=== PATIENT | female | born 1930 | race Caucasian/White ===

== ENCOUNTER 2019-08-04 15:46 | Inpatient (IN) ==
[2019-08-04] MEDS ORDERED: SALINE LOCK IV FLUID XX ONE (18:18)
[2019-08-04] MEDS ORDERED: VANCOMYCIN IV PER PHARMACY MISC SCH (18:30)
[2019-08-04 19:25] LABS: BASO# 0.05 X1000 (0.0-0.2); BASO% 0.6 % (0.0-0.8); EOS# 0.24 X1000 (0.0-0.7); EOS% 2.9 % (0.0-10.0); HEMATOCRIT 32.8 % (37.0-47.0); HEMOGLOBIN 10.5 g/dL (12.0-16.0); IMM GRAN# 0.02 X1000 (0.0-0.04); IMM GRAN% 0.2 % (0.0-0.5); LYMPH# 1.65 X1000 (1.2-3.4); MCH 29.4 PG (27-31); MCV 91.9 FL (81-99); MONO# 0.73 X1000 (0.11-0.59); MONO% 8.9 % (1.7-9.3); MPV 10.5 FL (7.4-10.4); NEUT# 5.54 X1000 (1.4-6.5); NEUT% 67.4 % (42.2-75.2); PLT 207 X1000 (130-400); RBC 3.57 XMIL (4.2-5.4); RDW 13.3 % (11.5-14.5); WBC 8.23 X1000 (4.8-10.8)
[2019-08-04 19:50] LABS: ALB/GLOB RATIO 1.4; ALBUMIN 4.4 g/dL (3.5-5.0); CALCIUM 10.2 mg/dL (8.8-10.2); CREATININE 1.8 mg/dL (0.5-0.9); POTASSIUM 5.3 mmol/L (3.5-5.1); TOTAL BILIRUBIN 0.29 mg/dL (0.20-1.00); TOTAL PROTEIN 7.6 g/dL (6.3-8.3)
[2019-08-04] MEDS: XALATAN 0.005% OPH SOLN BOTH EYES SCH (22:35)
[2019-08-04] MEDS: LOVENOX SUBQ SCH (22:36)
[2019-08-04] MEDS ORDERED: VANCOMYCIN 1,750 MG in NS 250 ML IV ONE (23:00)
[2019-08-05 02:10] LABS: URINE SOURCE CLEAN CATCH
[2019-08-05] MEDS ORDERED: TYLENOL PO PRN (02:12)
[2019-08-05] MEDS ORDERED: NORCO-7.5 PO PRN (02:13)
[2019-08-05 02:22] LABS: BILIRUBIN URINE NEGATIVE (NEGATIVE); BLOOD URINE NEGATIVE (NEGATIVE); COLOR YELLOW; GLUCOSE URINE NEGATIVE (NEGATIVE); KETONE URINE NEGATIVE (NEGATIVE); LEUKOCYTES URINE MODERATE (NEGATIVE); NITRITE URINE NEGATIVE (NEGATIVE); PH URINE 6.5; PROTEIN URINE NEGATIVE (NEGATIVE); TURBIDITY URINE CLEAR (CLEAR); UROBILINOGEN URINE NORMAL (NORMAL)
[2019-08-05 02:23] LABS: UR EPITHELIAL CELLS <10 /HPF (<10); URINE BACTERIA NEGATIVE /HPF; URINE RBC <10 /HPF (<10); URINE WBC 20-40 /HPF (<10)
[2019-08-05] MEDS: NORCO-7.5 PO PRN ×3 (02:41→20:54)
[2019-08-05] MEDS: PROTONIX PO SCH (06:06)
--- NOTE | 2019-08-05 06:30 | HISTORY AND PHYSICAL ---
CHIEF COMPLAINT: Right leg redness and swelling, stasis ulcers, and not healing for the last one year under the care of Dr. Wilson. HISTORY OF PRESENT ILLNESS: He is an 88-year-old white female who came in my office along with son where the right lower leg is red and swollen, exited drainage on the stasis ulcers bilaterally. I have seen her in April. At that time, the wound is completely healed. Apparently, started back again of pain, and not able to walk. The patient has been admitted to the hospital with wound culture, wound consult, and IV antibiotics. Family agreed upon since he has failed with outpatient treatment. 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 PAST SURGICAL HISTORY: Appendectomy, cholecystectomy, cystocele repair, hysterectomy, bilateral knee arthroplasty, right shoulder replacement, and deviated septum corrected by Dr. Huffman. MEDICATIONS: 1. Cozaar 50 mg daily. 2. Latanoprost 1 drop b.i.d. 3. Protonix 40 daily. 4. Toprol 25 daily. 5. Aldactone 25 daily. 6. Lasix as needed. ALLERGIES: Sulfa. SOCIAL HISTORY: . Living with son, living in [place]. No smoking. No alcohol. FAMILY HISTORY: Father of old age at 72. Mom of stroke at 52. Health maintenance flu vaccine August of 2018. Pneumococcal in August of 2017. Tetanus in 2007. Mammography March of 2015. Last colonoscopy April of [address] Abbott. The last eye exam April of [address] Lyles. REVIEW OF SYSTEMS: HEENT: No headache. He had vision problems with Dr. Lyles. No earache. No sore throat. Neck: No goiter. No lymphadenopathy. No bruit. Cardiopulmonary: No chest pain, shortness of breath, PND, or orthopnea. GI: No nausea, vomiting, or abdominal pain. No bleeding per rectum. : No history of hesitancy, frequency, dysuria. Right leg swelling, drainage, pain, not able to walk. Neurologic: No focal symptoms or weakness. PHYSICAL EXAMINATION: VITAL SIGNS: She is afebrile, 5 feet 4, and 226 pounds. HEENT: Atraumatic, normocephalic. Pupils equal and reactive to light. TMs are normal. Nose and throat within normal limits. NECK: Supple. No lymphadenopathy. No goiter. CHEST: Bilateral air entry. HEART: Sounds are regular very distant. Belly is soft, obese, and nontender. Good bowel sounds. EXTREMITIES: Right leg has diffuse redness with signs of inflammation. Yellow exudate is emanating on the lateral part of the leg. No signs of gangrene. No obvious deficits. INVESTIGATIONS: White cell count 8.2, hematocrit 32, and platelet 207,000. Sedimentation rate was 56. Sodium 137, potassium 5.3, BUN 40, creatinine 1.8. LFTs were normal. Wound cultures are pending. ASSESSMENT AND PLAN: 1. An 88-year-old white female admitted to the hospital with right leg cellulitis with chronic venous stasis ulcers not improving. Follow up on wound culture. Plan is IV vancomycin. Wound consult. 2. History of diastolic heart failure, PAF, on fluid restrictions and daily weights. 3. Cardiac healthy diet. 4. Reconcile home medications. 5. PAF. The patient was not a candidate for anticoagulation due to GI bleeding in the past. 6. History of glaucoma on eye drops. 7. DVT and GI prophylaxis with PPI and Lovenox. 8. We will follow up. cc: Jose Antonio Layne MD
[2019-08-05] MEDS: CULTURELLE PO SCH (08:31)
[2019-08-05] MEDS: COZAAR PO SCH (08:31)
[2019-08-05] MEDS: VICON-C PO SCH (08:31)
[2019-08-05] MEDS: LASIX PO SCH (08:32)
[2019-08-05] MEDS: TOPROL XL PO SCH (08:32)
[2019-08-05] MEDS: ASPIRIN PO SCH (08:32)
[2019-08-05] MEDS: PATIENT'S OWN MED PO SCH ×2 (10:56)
[2019-08-05] MEDS: XALATAN 0.005% OPH SOLN BOTH EYES SCH (20:13)
[2019-08-05] MEDS: LOVENOX SUBQ SCH (20:13)
[2019-08-06] MEDS: PROTONIX PO SCH (06:21)
--- NOTE | 2019-08-06 07:13 | PROGRESS NOTE ---
DATE: 08/05/2019 SUBJECTIVE: The patient is doing a little better. Son is at bedside. REVIEW OF SYSTEMS: None reported. PHYSICAL EXAMINATION: Vital Signs: Temperature is 97 degrees, pulse 84, vitals are stable. HEENT: Within normal limits. Chest: Clear. Heart: Heart sounds are regular. Abdomen: Belly is soft, nontender. Extremities: Right leg is diffusely red. Exudate is decreasing. LABORATORY DATA: Wound culture is showing gram-negative rods. ASSESSMENT AND PLAN: 1. Right leg cellulitis. Intravenous antibiotics with vancomycin. Based on the cultures, further recommendations will be followed. Waiting for Wound Care consult. Follow up on wound culture report. Continue present antibiotics. 2. Chronic kidney disease, stable. 3. Diastolic heart failure, stable. 4. Deep venous thrombosis prophylaxis with Lovenox. Will follow up and will check the BMP in the morning. LEVEL OF DOCUMENTATION: 25 minutes. cc: Jose Antonio Layne MD
[2019-08-06 08:52] LABS: CALCIUM 9.2 mg/dL (8.8-10.2); CREATININE 1.8 mg/dL (0.5-0.9); POTASSIUM 4.3 mmol/L (3.5-5.1)
[2019-08-06] MEDS: PATIENT'S OWN MED PO SCH ×2 (09:53→09:54)
[2019-08-06] MEDS: VICON-C PO SCH (09:54)
[2019-08-06] MEDS: TOPROL XL PO SCH (09:54)
[2019-08-06] MEDS: LASIX PO SCH (09:54)
[2019-08-06] MEDS: ASPIRIN PO SCH (09:54)
[2019-08-06] MEDS: COZAAR PO SCH (09:54)
[2019-08-06] MEDS: CULTURELLE PO SCH (09:54)
[2019-08-06] MEDS ORDERED: LEVAQUIN 500 MG/D5W 500 MG/100 ML IVPB IV SCH (14:45)
[2019-08-06] MEDS: XALATAN 0.005% OPH SOLN BOTH EYES SCH (20:07)
[2019-08-06] MEDS ORDERED: LOVENOX SUBQ SCH (21:00)
[2019-08-06] MEDS ORDERED: VANCOMYCIN 1,450 MG in NS 250 ML IV SCH (23:00)
[2019-08-06] MEDS: NORCO-7.5 PO PRN (23:25)
--- NOTE | 2019-08-07 05:51 | PROGRESS NOTE ---
DATE: 08/06/2019 SUBJECTIVE: The patient is doing very well. REVIEW OF SYSTEMS: None reported. OBJECTIVE: Temperature is 98 degrees and pulse 79. Vitals are stable.HEENT: Within normal limits. Chest: Clear. Heart: Sounds are regular. Abdomen: Belly is soft and nontender. Extremities: Right leg was wrapped up. Wound cultures grew gram-negative rods with Serratia marcescens sensitive to Levaquin. ASSESSMENT AND PLAN: 1. Right leg cellulitis with Serratia, changing IV vancomycin to Levaquin 250 IV once a day. Adjust the dose based on the creatinine clearance. 2. Deep venous thrombosis prophylaxis. Decrease Lovenox to 30 mg subcutaneously daily. Continue present treatment. Appreciated wound consult. We will continue the antibiotics. We will follow up. LEVEL OF DOCUMENTATION: 35 minutes. cc: Jose Antonio Layne MD
[2019-08-07] MEDS: PROTONIX PO SCH (06:00)
[2019-08-07] MEDS: CULTURELLE PO SCH (08:37)
[2019-08-07] MEDS: ASPIRIN PO SCH (08:37)
[2019-08-07] MEDS: TOPROL XL PO SCH (08:37)
[2019-08-07] MEDS: VICON-C PO SCH (08:37)
[2019-08-07] MEDS: LASIX PO SCH (08:37)
[2019-08-07] MEDS: COZAAR PO SCH (08:38)
[2019-08-07] MEDS: PATIENT'S OWN MED PO SCH ×2 (08:39)
[2019-08-07] MEDS: LOVENOX SUBQ SCH (13:27)
[2019-08-07] MEDS: LEVAQUIN 250 MG/D5W 250 MG/50 ML IVPB IV SCH (18:26)
[2019-08-07] MEDS: XALATAN 0.005% OPH SOLN BOTH EYES SCH (22:19)
[2019-08-07] MEDS: NORCO-7.5 PO PRN (23:27)
[2019-08-08] MEDS: PROTONIX PO SCH ×2 (05:41→06:17)
--- NOTE | 2019-08-08 06:38 | PROGRESS NOTE ---
DATE: 08/07/2019 SUBJECTIVE: The son is at bedside. Patient is doing well obviously. Wound cultures grew Serratia. REVIEW OF SYSTEMS: None reported. EXAM: Temp is 97 degrees, vitals are stable.HEENT: Within normal limits. Neck: Supple. Chest: Clear. Heart: Sounds are regular. Abdomen: Belly is soft, nontender. Neurologic: No obvious deficits. INVESTIGATION: Creatinine 1.8. ASSESSMENT AND PLAN: Right leg cellulitis with Serratia. Change to Levaquin 250 IV once a day. Changing the DVT prophylaxis with Lovenox 30 subcu q.24 hours. Continue present treatment. I appreciated wound consult. Out of the bed with physical therapy. LEVEL OF DOCUMENTATION: 25 minutes. cc: Jose Antonio Layne MD
[2019-08-08] MEDS: TOPROL XL PO SCH (11:17)
[2019-08-08] MEDS: CULTURELLE PO SCH (11:17)
[2019-08-08] MEDS: LASIX PO SCH (11:17)
[2019-08-08] MEDS: COZAAR PO SCH (11:18)
[2019-08-08] MEDS: VICON-C PO SCH (11:18)
[2019-08-08] MEDS: PATIENT'S OWN MED PO SCH ×3 (11:18→20:14)
[2019-08-08] MEDS: ASPIRIN PO SCH (11:18)
[2019-08-08] MEDS: LOVENOX SUBQ SCH (11:19)
[2019-08-08] MEDS ORDERED: TUMS EXTRA STRENGTH PO PRN (14:50)
[2019-08-08] MEDS ORDERED: PATIENT'S OWN MED PO SCH (15:00)
[2019-08-08] MEDS: LEVAQUIN 250 MG/D5W 250 MG/50 ML IVPB IV SCH (17:57)
[2019-08-08] MEDS: ALPHAGAN 0.2% OPHTH SOLN LEFT EYE SCH ×2 (18:01→20:07)
--- NOTE | 2019-08-08 22:22 | PROGRESS NOTE ---
DATE: 08/08/2019 SUBJECTIVE: The patient is doing better. Intravenous access is out and trying to get an IV. Patient wants to restart her home medicines, mostly for eye drops. REVIEW OF SYSTEMS: None reported. OBJECTIVE: Temperature is 97 degrees. Vitals are stable.HEENT: Within normal limits. Chest: Clear. Heart sounds are regular. Belly is soft, nontender. No obvious deficits. INVESTIGATIONS: Wound cultures are Serratia. Urine cultures are Proteus mirabilis. ASSESSMENT AND PLAN: 1. Right leg cellulitis with stasis ulcers not healing for two years. Continue on IV Levaquin. 2. Deep venous thrombosis prophylaxis with Lovenox. Restart her home medicines. 3. Dietary consult for weight loss. 4. Follow up on Proteus infection about C S. 5. Poor intravenous access, will get an IV and will follow up. LEVEL OF DOCUMENTATION: 25 minutes. cc: Jose Antonio Layne MD
[2019-08-08] MEDS: NORCO-7.5 PO PRN (23:16)
[2019-08-08] MEDS: XALATAN 0.005% OPH SOLN BOTH EYES SCH (23:17)
[2019-08-09] MEDS: PROTONIX PO SCH (06:30)
[2019-08-09] MEDS: PATIENT'S OWN MED PO SCH ×4 (09:00→09:35)
[2019-08-09] MEDS: TOPROL XL PO SCH (09:04)
[2019-08-09] MEDS: ASPIRIN PO SCH (09:04)
[2019-08-09] MEDS: VICON-C PO SCH (09:04)
[2019-08-09] MEDS: LASIX PO SCH (09:04)
[2019-08-09] MEDS: CULTURELLE PO SCH (09:04)
[2019-08-09] MEDS: COZAAR PO SCH (09:04)
[2019-08-09] MEDS: ALPHAGAN 0.2% OPHTH SOLN LEFT EYE SCH ×2 (09:12→22:00)
[2019-08-09] MEDS: LOVENOX SUBQ SCH (10:55)
--- NOTE | 2019-08-09 12:17 | PROGRESS NOTE ---
DATE: 08/09/2019 SUBJECTIVE: The patient is doing very well and tomorrow, the staff is going to unwrap the right leg. OBJECTIVE: Temperature is 97, pulse 74, blood pressure 131/50, weight is 215 pounds. Physical exam with no change. DIAGNOSTIC DATA: No labs. ASSESSMENT AND PLAN: 1. Right leg cellulitis due to serratia. Continue on Levaquin. 2. Poor IV access, multiple attempts. 3. Proteus mirabilis infection resistant to everything except imipenem. I will discuss with caregiver. Currently asymptomatic. 4. DVT prophylaxis with Lovenox. 5. Restart home medicines for glaucoma. 6. Out of the bed with physical therapy. Level of documentation is 25 minutes. cc: Jose Antonio Layne MD
[2019-08-09] MEDS ORDERED: LEVAQUIN PO SCH (18:00)
[2019-08-09] MEDS: XALATAN 0.005% OPH SOLN BOTH EYES SCH (22:00)
[2019-08-09] MEDS: NORCO-7.5 PO PRN (22:04)
[2019-08-10] MEDS: PATIENT'S OWN MED PO SCH ×5 (01:20→15:21)
[2019-08-10] MEDS: PROTONIX PO SCH (06:58)
[2019-08-10] MEDS: CULTURELLE PO SCH (09:11)
[2019-08-10] MEDS: VICON-C PO SCH (09:11)
[2019-08-10] MEDS: LASIX PO SCH (09:11)
[2019-08-10] MEDS: TOPROL XL PO SCH (09:11)
[2019-08-10] MEDS: COZAAR PO SCH (09:11)
[2019-08-10] MEDS: ASPIRIN PO SCH (09:11)
[2019-08-10] MEDS: ALPHAGAN 0.2% OPHTH SOLN LEFT EYE SCH ×2 (09:12→20:28)
[2019-08-10 09:35] LABS: INR 1.1; PROTIME 14.4 Seconds (11.0-16.0)
[2019-08-10] MEDS ORDERED: SANTYL OINT TOP SCH (11:15)
[2019-08-10] MEDS: LOVENOX SUBQ SCH (12:31)
[2019-08-10] MEDS ORDERED: NS 250 ML ONE (14:48)
--- NOTE | 2019-08-10 16:15 | Diag Imaging Result Doc PS360 ---
CHEST-1 VIEW - 08/10/2019 INDICATION: picc line placement COMPARISON: 08/13/2017 FINDINGS: There is a right PICC line in good position with the tip at the upper SVC. Stable sternotomy wires. Stable dual chamber left pacemaker. Heart size is top normal. Pulmonary vascularity is normal. No infiltrates or definite edema. IMPRESSION: Good right PICC line placement. Electronically signed by Ray Alvarado 08/10/2019 4:13 PM
[2019-08-10] MEDS: LEVAQUIN 250 MG/D5W 250 MG/50 ML IVPB IV SCH (18:12)
[2019-08-10] MEDS ORDERED: NS 500 ML ONE (18:25)
[2019-08-10] MEDS: XALATAN 0.005% OPH SOLN BOTH EYES SCH (20:28)
--- NOTE | 2019-08-10 21:40 | PROGRESS NOTE ---
DATE: 08/10/2019 SUBJECTIVE: IV access is problematic. She is not getting IV antibiotics for the last 2 days. Right leg is still bandaged. Wound cultures grew Serratia, also UTI with Proteus. OBJECTIVE: Vital signs: Temperature is 97 degrees. Vitals are stable. Physical exam: No change. ASSESSMENT AND PLAN: 1. Chronic right leg stasis ulcers with cellulitis with Serratia. 2. Urinary tract infection, 50,000 colonies. 3. Poor IV access. I discussed with the patient's son. Needs IV antibiotics. We will get a PICC line, aggressive treatment. We will arrange home IV antibiotics for at least 2 weeks and agreeable and also he wants a second opinion with Dr. Wilson. LEVEL OF DOCUMENTATION: 25 minutes. cc: Jose Antonio Layne MD
[2019-08-10] MEDS: NORCO-7.5 PO PRN (23:53)
[2019-08-11] MEDS: PROTONIX PO SCH (06:06)
[2019-08-11 07:09] LABS: BASO# 0.05 X1000 (0.0-0.2); BASO% 0.8 % (0.0-0.8); EOS# 0.32 X1000 (0.0-0.7); EOS% 5.1 % (0.0-10.0); HEMATOCRIT 31.8 % (37.0-47.0); HEMOGLOBIN 10.1 g/dL (12.0-16.0); LYMPH# 1.13 X1000 (1.2-3.4); LYMPH% 17.9 % (20.5-51.1); MCH 29.2 PG (27-31); MCHC 31.8 g/dL (33-37); MCV 91.9 FL (81-99); MONO# 0.65 X1000 (0.11-0.59); MONO% 10.3 % (1.7-9.3); MPV 11.5 FL (7.4-10.4); NEUT# 4.15 X1000 (1.4-6.5); NEUT% 65.9 % (42.2-75.2); PLT 221 X1000 (130-400); RBC 3.46 XMIL (4.2-5.4); RDW 13.2 % (11.5-14.5)
[2019-08-11 07:43] LABS: CALCIUM 8.9 mg/dL (8.8-10.2); POTASSIUM 3.9 mmol/L (3.5-5.1)
[2019-08-11] MEDS: VICON-C PO SCH (09:23)
[2019-08-11] MEDS: ASPIRIN PO SCH (09:23)
[2019-08-11] MEDS: LASIX PO SCH (09:23)
[2019-08-11] MEDS: CULTURELLE PO SCH (09:23)
[2019-08-11] MEDS: COZAAR PO SCH (09:24)
[2019-08-11] MEDS: PATIENT'S OWN MED PO SCH ×4 (09:24→18:10)
[2019-08-11] MEDS: TOPROL XL PO SCH (09:24)
[2019-08-11] MEDS: ALPHAGAN 0.2% OPHTH SOLN LEFT EYE SCH ×2 (09:28→19:57)
[2019-08-11] MEDS: LOVENOX SUBQ SCH ×2 (09:29→12:24)
[2019-08-11] MEDS: TEMOVATE 0.05% CREAM TOP SCH ×2 (10:04→19:57)
--- NOTE | 2019-08-11 14:36 | GENERAL SURGERY CONSULTATION ---
DATE: 08/11/2019 REASON FOR CONSULTATION: Right lower extremity wound. HISTORY OF PRESENT ILLNESS: This is an 88-year-old female known to me previously from an ulcer on her right lower leg which took a long time to heal and many interventions were attempted along the way. She eventually did seem to heal her wound with regrowth of epithelium earlier this year. However, the patient reports she has had pain in that area of her anterior and lateral right lower leg for several years. Recently, she has had increased pain, some redness, and new areas of skin breakdown which were worse than before. When she first was admitted, she said there were some scabs in that area. The wound care nurse noted at presentation that her wound was moist and red with macerated tissue around the wound and red open wound beds. Also, it was noted to be very painful to touch, which I also recall in my previous visits with her. The patient has had a wound culture growing Serratia marcescens and she is on antibiotics for that. She has not reported much in the way of swelling of her leg. She does not have prominent varicose veins. She has not had fever or chills. PAST MEDICAL HISTORY: 1. Chronic right lower leg pain and ulcer. 2. Chronic diastolic congestive heart failure. 3. Chronic kidney disease. 4. Diverticulosis. 5. Metabolic syndrome. 6. Hypertension. 7. Paroxysmal atrial fibrillation. 8. Peptic ulcer disease. 9. Intramural uterine leiomyoma. PAST SURGICAL HISTORY: Appendectomy, cholecystectomy, cystocele repair, hysterectomy, bilateral knee arthroplasty, right shoulder replacement, deviated septum repair. HOME MEDICATIONS: Cozaar, latanoprost, Protonix, Toprol, Aldactone, Lasix. ALLERGIES: Sulfa. SOCIAL HISTORY: She is . She lives with her son. No smoking, alcohol, or illicit drug use. FAMILY HISTORY: Reviewed and noncontributory. REVIEW OF SYSTEMS: Ten systems reviewed and negative except as noted above. PHYSICAL EXAMINATION: Vital Signs: Temperature 97.9 degrees, pulse 82, respirations 16, blood pressure 126/57, O2 saturation 99%. General: Well-developed, elderly female in no distress, who looks her stated. HEENT: Normocephalic, atraumatic. Extraocular muscles intact. Pupils equal, round, reactive to light. Sclerae anicteric. Moist mucous membranes. Hearing grossly normal. No oral lesions. Neck: Supple. No thyromegaly. CV: Regular rate and rhythm. Respiratory: Bilateral equal breath sounds. No work of breathing. GI: Soft, nontender, nondistended. No organomegaly or mass. Musculoskeletal: Moves all extremities equally and well. Extremities: No clubbing, cyanosis, or edema. Skin: Her right anterolateral lower leg has an area of redness, tenderness, and spread out ulcerations with varying degrees of skin breakdown through the dermis into the subcutaneous tissue. There was no necrotic skin at this point but by history, she had some on admission. There is some serous drainage and also some thicker yellow drainage but no christiano purulence. IMAGING: None pertinent. ASSESSMENT/PLAN: An 88-year-old female with chronic recurrent right leg pain and worsening skin ulcerations. Given her history and physical exam findings, I am concerned for pyoderma gangrenosum rather than venous ulcer disease or peripheral arterial disease. She may have a superimposed bacterial infection, so I do not disagree with antibiotics. We are going to start a topical steroid and try that twice daily for several weeks and see how she responds. In addition, I spoke with Dr. Layne and recommended a dermatology referral after discharge. cc: MD Jose Antonio Lopez MD
[2019-08-11] MEDS: LEVAQUIN 250 MG/D5W 250 MG/50 ML IVPB IV SCH (18:10)
[2019-08-11] MEDS: XALATAN 0.005% OPH SOLN BOTH EYES SCH (19:57)
--- NOTE | 2019-08-11 23:06 | PROGRESS NOTE ---
DATE: 08/11/2019 SUBJECTIVE: I looked at the right leg. Discharge is better. Multiple skin ulcers. It does not look like stasis dermatitis. Dr. Wilson was consulted. He thinks possible needs a dermatological evaluation and possible steroid cream. PICC line was placed. OBJECTIVE: Vital signs: Temperature is 98 degrees. Vitals are stable. Physical exam: No change. INVESTIGATIONS: CBC: White cell count 6.3, hematocrit 32, platelets 221,000. Sodium 137, potassium 3.9, BUN 61, creatinine 2.0. ASSESSMENT AND PLAN: 1. Right leg cellulitis with Serratia, rule out pyoderma gangrenosum. Outpatient Dr. Márquez consult. 2. Peripherally inserted central catheter line was placed. 3. Outpatient antibiotics with cellulitis and urinary tract infection. We will arrange NPH consult and will discharge in the morning. Will follow up as an outpatient. LEVEL OF DOCUMENTATION: 25 minutes. cc: Jose Antonio Layne MD
[2019-08-11] MEDS: NORCO-7.5 PO PRN (23:41)
[2019-08-12] MEDS: TEMOVATE 0.05% CREAM TOP SCH ×2 (03:05→09:39)
[2019-08-12] MEDS: XALATAN 0.005% OPH SOLN BOTH EYES SCH ×2 (03:05→09:40)
[2019-08-12] MEDS: ALPHAGAN 0.2% OPHTH SOLN LEFT EYE SCH ×2 (03:05→09:42)
[2019-08-12] MEDS: PROTONIX PO SCH (06:21)
[2019-08-12] MEDS ORDERED: FLU VACCINE IM ONE (08:34)
[2019-08-12] MEDS: VICON-C PO SCH (09:38)
[2019-08-12] MEDS: CULTURELLE PO SCH (09:38)
[2019-08-12] MEDS: COZAAR PO SCH (09:38)
[2019-08-12] MEDS: ASPIRIN PO SCH (09:39)
[2019-08-12] MEDS: LASIX PO SCH (09:39)
[2019-08-12] MEDS: TOPROL XL PO SCH (09:39)
[2019-08-12] MEDS: PATIENT'S OWN MED PO SCH (09:44)
[2019-08-12 09:56] VITALS: BP 151/68
[2019-08-12] MEDS ORDERED: INVANZ 1 GM/NS 1 GM/50 ML IVPB IV SCH (12:00)
--- NOTE | 2019-08-13 18:42 | DISCHARGE SUMMARY ---
ADMISSION DATE: 08/04/2019 DISCHARGE DATE: 08/12/2019 DISCHARGING DIAGNOSES: Right leg cellulitis, nonhealing ulcers for the last 2 years. SECONDARY DIAGNOSES: 1. Chronic kidney disease, creatinine 2.0. 2. Chronic diastolic congestive heart failure, stable. 3. Diverticulosis. 4. Metabolic syndrome. 5. Hypertension. 6. Paroxysmal atrial fibrillation. 7. Acid reflux disease. 8. Benign uterine fibroids. 9. Urinary tract infection Proteus mirabilis more than 50,000 colonies per mL. CONSULTATIONS: Dr. Wilson. PROCEDURES: PICC line on the right side. BRIEF HISTORY: Please see the H and P that was done on 08/04/2019. In brief, she is an 88-year- old white female who has been battling with these nonhealing ulcers in the right leg for the last 2 years off and on. The patient was seen in the [facility] by Dr. Wilson. At this time, the ulcers are mostly on the lateral side with substantial inflammation. Wound cultures grew Serratia Marcescens She is not getting any better. Dr. Wilson was consulted after 3 days of IV antibiotics. He thought this does not look like a stasis dermatitis. This could be pyoderma gangrenosum. I do not know whether she had ABIs done in the past. We will look into the blood flow studies to the legs. He wants to try topical steroids and outpatient Dermatology consultation. Due to Serratia infection and the Proteus infection in the urine which has resistance, the patient was given a PICC line on the right side with IV Invanz 1 g once daily for 2 weeks. Arrangements were made to the Fingerprint Clerk as outpatient. Plan of care discussed with the caregiver. LABORATORIES: CBC: White cell count 6.3, hematocrit 31.8, platelets 221,000. Sodium 137, potassium 3.1, BUN 60, creatinine 2.0. DISCHARGING INSTRUCTIONS: Xalatan 1 drop both eyes at bedtime, multivitamin 1 tablet daily, fish oil 1 tablet daily, Lasix 20 daily, aspirin 80 mg daily, Protonix 40 daily, losartan 50 daily, probiotics 1 tablet daily, B complex 150 daily, metoprolol 25 daily, metoprolol with hydrochlorothiazide once daily, Alphagan eye drops as directed, outpatient IV antibiotics, outpatient Dermatology appointment, clobetasol cream 1 tablet p.o. b.i.d., follow up in my office in 10 days, and outpatient home health care. cc: MD Jose Marshall MD [facility]
== END 2019-08-12 11:25 | disposition home health service (06) | DRG 603 ==
LOC: DIRADM 15:46 → EDIPHOLD 16:23 → 4N 21:25
PROVIDERS: ADMIT Internal Medicine; ATTEND Internal Medicine